=== PATIENT | male | born 1965 | race Caucasian/White ===

== ENCOUNTER 2024-12-22 10:56 | Day surgery (SDC) | payer OTHER ==
[~2024-12-22] VITALS: Ht 188 cm; Wt 97.4 kg
[2024-12-22] VITALS (9 sets, daily range): BP systolic 115–158; BP diastolic 65–98; PULSE 56–72; RESP 12–14; TEMP 97.6; O2SAT 93–99
[2024-12-22] MEDS ORDERED: AMLO5TAB16 (11:47)
[2024-12-22] MEDS ORDERED: ASPI81TA52 PO (11:47)
[2024-12-22] MEDS ORDERED: NITR0.4T48 (11:47)
[2024-12-22 11:55] LABS: PROTHROMBIN TIME 10.8 SECONDS (9.0-12.0)
[2024-12-22] MEDS: normal saline 1,000 ML IV SCH (13:17)
[2024-12-22] MEDS: diphenhydrAMINE 25mg capsule PO PRN (13:17)
[2024-12-22] MEDS: LORazepam 0.5 MG tablet PO PRN (13:17)
[2024-12-22] MEDS ORDERED: fentaNYL/PF 50MCG/1 ML 2ML syringe ONE (14:25)
[2024-12-22] MEDS ORDERED: LIDOcaine 1% (10mg/ml) 2ml vial ONE (14:25)
[2024-12-22] MEDS ORDERED: verapamil 2.5 mg/ml inj IV ONE (14:25)
[2024-12-22] MEDS ORDERED: midazolam 1 mg/ML 2ml injection ONE (14:25)
[2024-12-22] MEDS ORDERED: heparin 1,000unit/ml 10ml vial 10 ML ONE (14:25)
[2024-12-22] MEDS ORDERED: iohexol 350MG/ML 100ml bottle IV ONE (14:26)
[2024-12-22] MEDS ORDERED: nitroGLYCERIN 500mcg/5mL D5W 5 ML IV ONE (14:26)
[2024-12-22] MEDS ORDERED: HYDROcodone/acetaminophen 5mg/325mg tablet PO PRN (15:40)
[2024-12-22] MEDS ORDERED: HYDROcodone/acetaminophen 10/325mg tab PO PRN (15:40)
== END 2024-12-22 17:00 | disposition home or self-care (01) ==
LOC: CATH LAB 10:56 → SSTAY O 17:00
PROVIDERS: ATTEND Student in an Organized Health Care Education/Training Program
DX: R94.39 Abnormal result of other cardiovascular function study (principal); I20.9 Angina pectoris, unspecified; F41.9 Anxiety disorder, unspecified; K21.9 Gastro-esophageal reflux disease without esophagitis; Z98.890 Other specified postprocedural states; Z88.2 Allergy status to sulfonamides; K22.70 Barrett's esophagus without dysplasia; Z85.828 Personal history of other malignant neoplasm of skin; Z79.82 Long term (current) use of aspirin
CPT/HCPCS: 36415; 85610; 93005; 93458; 99152; A6258; J1644; J2003; J2250; J3010; J3490; J7030; Q0163; Q9967; A6402; C1894